=== PATIENT | female | born 1995 | race Caucasian/White ===

== ENCOUNTER 2017-11-18 04:48 | Outpatient (CLI) | payer BC, OTHER ==
[~2017-11-18] VITALS: Ht 167.6 cm; Wt 90.0 kg
[2017-11-18 05:10] VITALS: BP 133/91
[2017-11-18 07:27] VITALS: BP 137/84
[2017-11-18] MEDS ORDERED: PRENTAB9 PO (07:59)
[2017-11-18] MEDS ORDERED: LR 1,000 ML IV SCH (08:00)
[2017-11-18 08:39] VITALS: BP 133/82
[2017-11-18 09:13] VITALS: BP 127/80
[2017-11-18 10:08] VITALS: BP 119/68
== END 2017-11-18 10:50 | disposition home or self-care (01) ==
LOC: M LDO 04:48
PROVIDERS: ATTEND Obstetrics & Gynecology
DX: O99.89 Other specified diseases and conditions complicating pregnancy, childbirth and the puerperium (principal); Z3A.39 39 weeks gestation of pregnancy; O47.1 False labor at or after 37 completed weeks of gestation; R11.2 Nausea with vomiting, unspecified; R19.7 Diarrhea, unspecified; Z88.1 Allergy status to other antibiotic agents; O99.613 Diseases of the digestive system complicating pregnancy, third trimester

== ENCOUNTER 2017-11-18 20:21 | Inpatient (IN) | payer BC, OTHER ==
[2017-11-18] VITALS (16 sets, daily range): BP systolic 115–167; BP diastolic 60–118
[~2017-11-18] VITALS: Ht 167.6 cm; Wt 93.0 kg
[~2017-11-18 20:21] MED LIST: PRENTAB9 PO
[2017-11-18] MEDS ORDERED: LACTATED RINGER'S 1000 ML IV STA (20:59)
[2017-11-18 21:09] LABS: MEAN CORPUSCULAR HEMOGLOBIN 23.2 pg (27.0-33.0); MEAN CORPUSCULAR HGB CONC 30.5 g/dl (32.0-36.5); MEAN CORPUSCULAR VOLUME 76.1 fl (80.0-96.0); PLATELET COUNT, AUTOMATED 219 10^3/uL (150-450); RED CELL DISTRIBUTION WIDTH 16.9 % (11.5-14.5); WHITE BLOOD COUNT 12.6 10^3/uL (4.0-10.0)
--- NOTE | 2017-11-18 21:26 | HPE ---
DATE OF ADMISSION: 11/18/2017 22-year-old G1, P0 female, 39-3/7 weeks gestation by 6 week ultrasound, EDC of 11/22/2017 with erratic contractions every 3 to 4 minutes for the last several hours. She had a small amount of bleeding. There is good movement. COURSE: The patient initiated care on 03/05/2017 at 8 weeks gestation. Her first trimester blood pressure was 122/70, weight 155 pounds, course is essentially unremarkable. MEDICAL HISTORY: Noncontributory. SURGICAL HISTORY: None. ALLERGIES: CECLOR. SOCIAL HISTORY: The patient lives in [place]. She denies cigarettes, alcohol or drug use. The father of the baby is supportive and present. FAMILY HISTORY: Noncontributory. PHYSICAL EXAMINATION: Blood pressure 124/76, pulse 84. She appears moderately uncomfortable. Head and neck exam is normal. Lungs are clear. Heart: Regular rate and rhythm. Abdomen nontender, gravid. heart tones. Category 1. Sterile vaginal exam: 5 cm, 100% effaced, - 2 station, vertex, intact. Contractions 3 to 4 minutes. LABS: A+, rubella immune, RPR nonreactive, hepatitis B and C negative. GBS negative on 11/01/2017. ASSESSMENT: 22-year-old G1, P0 female at 39-3/7 weeks gestation presents in active labor. The patient is admitted on 11/18/2017.
[2017-11-18] MEDS ORDERED: FENTANYL 2MCG/ML ROPIVACAINE 0.2% IN 0.9% NACL 200ML IVBAG As Ordered ONE (21:40)
--- NOTE | 2017-11-18 22:41 | IPNPDOC ---
Text Note Date of Service The patient was seen on 11/18/17. NOTE Comfortable with epidural UC 2-5 minutes apart x 45-60 seconds, moderate FH 135, moderate variability, + accels SROM clear fluid 2230. SVE 7/100/0. Rest. Labor down. Anticipate NSVB VS,Fishbone, I+O VS, Fishbone, I+O Laboratory Tests 11/18/17 20:55 Red Blood Count 4.31, Mean Corpuscular Volume 76.1 L, Mean Corpuscular Hemoglobin 23.2 L, Mean Corpuscular Hemoglobin Concent 30.5 L, Red Cell Distribution Width 16.9 H Vital Signs Date Time Temp Pulse Resp B/P (MAP) Pulse Ox O2 Delivery O2 Flow Rate FiO2 11/18/17 20:37 88 141/81 (101) Kimberly Youngblood CNM Nov 18, 2017 22:41
[2017-11-18] MEDS ORDERED: NALOXONE INJ 0.4 MG/1 ML VIAL (J2310) IV PRN (23:30)
[2017-11-18] MEDS ORDERED: diphenhydrAMINE INJ 50MG/ML VIAL (J1200) IV PRN (23:30)
[2017-11-18] MEDS ORDERED: FENTANYL/ROPIVACAINE/NACL BAG 200 ML EPIDURAL SCH (23:30)
[2017-11-18] MEDS ORDERED: ePHEDrine SULFATE 25 MG/5 ML(5MG/ML) SYRINGE IV PRN (23:30)
[2017-11-18] MEDS ORDERED: REFRIGERATOR IV KEYS XX PRN (23:30)
[2017-11-18] MEDS ORDERED: ONDANSETRON 4MG/2ML VIAL (J2405) IV PRN (23:30)
[2017-11-18] MEDS ORDERED: EPIDURAL/PCA KEYS XX PRN (23:30)
[2017-11-18] MEDS ORDERED: LACTATED RINGER'S 1000 ML IV PRN (23:30)
[2017-11-18] MEDS ORDERED: EPIDURAL COMMENT XX SCH (23:30)
[2017-11-18] MEDS ORDERED: OXYTOCIN DRIP 30 UNITS in APPROPRIATE DILUENT 1 EA IV SCH (23:45)
[2017-11-19] VITALS (13 sets, daily range): BP systolic 128–150; BP diastolic 60–86
[2017-11-19 02:18] LABS: CORD GAS ABE V -5.6; CORD GAS HCO3 V 20.4 MEQ/L; CORD GAS O2 SAT V 53.8 %; CORD GAS PH V 7.305 UNITS; CORD GAS PO2 V 25.9 mmHg; CORD GAS SBC V 18.8 MEQ/L; CORD GAS TCO2 V 21.7 MEQ/L
[2017-11-19 02:21] LABS: CORD GAS ABE A -6.6; CORD GAS HCO3 A 21.1 MEQ/L; CORD GAS O2 SAT A 83.8 %; CORD GAS PCO2 A 49.7 mmHg; CORD GAS PH A 7.245 UNITS; CORD GAS PO2 A 42.4 mmHg; CORD GAS SBC A 18.8 MEQ/L; CORD GAS TCO2 A 22.6 MEQ/L
[2017-11-19] MEDS ORDERED: ACETAMINOPHEN 500 MG TAB PO PRN (02:30)
[2017-11-19] MEDS ORDERED: DIBUCAINE 1% OINTMENT 30GM TOP PRN (02:30)
[2017-11-19] MEDS ORDERED: METHYLERGONOVINE MALEATE 0.2 MG TAB PO PRN (02:30)
[2017-11-19] MEDS ORDERED: DOCUSATE SODIUM 100 MG CAP PO PRN (02:30)
[2017-11-19] MEDS ORDERED: MOM 30ML SUSPENSION UDC PO PRN (02:30)
[2017-11-19] MEDS ORDERED: MEASLES,MUMPS,RUBELLA VACCINE INJ (MMR-II) (90707) SC SCH (02:30)
[2017-11-19] MEDS ORDERED: RHOGAM 300 MCG (1500 IU) INJ (J2790) IM SCH (02:30)
[2017-11-19] MEDS ORDERED: ANUSOL HC CREAM 30GM TOP PRN (02:30)
--- NOTE | 2017-11-19 02:36 | DNPDOC ---
[facility] Delivery Note Delivery Note DATE OF DELIVERY: 11/19/2017 PREDELIVERY DIAGNOSIS: 39-4/7 weeks' gestation and labor. POST DELIVERY DIAGNOSIS: Delivered. PROCEDURE: Spontaneous vaginal delivery. LABORATORY ANIMAL CARE VETERINARIAN: Kimberly Youngblood ANESTHESIA: Epidural. ESTIMATED BLOOD LOSS: 100 mL. FINDINGS: 6 pound 13 ounce female infant, Score 9/9, no nuchal cord. DELIVERY SUMMARY: Patient is a 22-year-old 1 now para 1 -0 -0-1 who was admitted to labor and delivery for active labor. She utilized an epidural for labor coping. Spontaneous rupture of membranes scant amount of clear fluid at 2233. Fully dilated 0022. Artificial rupture of membranes of the fore bag at 0038, for thin meconium-stained fluid. Viable female child delivered without difficulty SONNY at 0157. Spontaneous respirations. Transitioned on maternal abdomen. Cord doubly clamped and cut by the father of the baby under my direction once pulsations ceased. Apgars were 9 and 9. Cord gases were obtained. Arterial 7.245 with base excess of -6.6 and venous 7.305 with base excess of -5.6. Placenta delivered Swanson and intact with a three-vessel cord at 0204. Fundus firmed with massage and IV Pitocin bolus. Estimated blood loss 100 mL. Cervix, vagina and perineum were inspected. First-degree vaginal laceration and bilateral labial lacerations were repaired with 3-0 Vicryl Rapide. weight 3100 g, 6 lbs. 13 oz. Parents are naming their daughter Amy. Sponge, sharp and instrument count were correct at the close of the procedure Kimberly Youngblood CNM Nov 19, 2017 02:36
[2017-11-19] MEDS: PRENATAL VITAMINS CHEWABLE TABLET PO SCH (09:09)
[2017-11-19] MEDS: IBUPROFEN 800 MG TAB PO PRN (20:43)
[2017-11-20 06:00] VITALS: BP 126/74
[2017-11-20] MEDS ORDERED: IBUP-1114 PO (07:19)
[2017-11-20] MEDS ORDERED: ACET50TA PO (07:19)
[2017-11-20] MEDS: IBUPROFEN 800 MG TAB PO PRN (08:08)
[2017-11-20] MEDS: PRENATAL VITAMINS CHEWABLE TABLET PO SCH (08:08)
== END 2017-11-20 11:15 | disposition home or self-care (01) | DRG 560 ==
LOC: M LDO 20:21 → M LDI 20:44 → M OBS 11-19 05:18
PROVIDERS: ADMIT Specialist; ATTEND Specialist
PROC: 10E0XZZ Delivery of Products of Conception, External Approach (ICD-10-PCS; principal; 2017-11-19)
PROC: 0HQ9XZZ Repair Perineum Skin, External Approach (ICD-10-PCS; 2017-11-19)
PROC: 10907ZC Drainage of Amniotic Fluid, Therapeutic from Products of Conception, Via Natural or Artificial Opening (ICD-10-PCS; 2017-11-19)
DX: O70.0 First degree perineal laceration during delivery (principal); Z37.0 Single live birth; Z3A.39 39 weeks gestation of pregnancy

== ENCOUNTER → 2018-05-07 | Outpatient (REF) | payer OTHER | LOC: M LAB REF 09:19 | DX: Z12.4 Encounter for screening for malignant neoplasm of cervix (principal); B37.3 Candidiasis of vulva and vagina ==

== ENCOUNTER → 2019-06-10 | Outpatient (CLI) | payer OTHER ==
[~2019-06-10] MED LIST changes: +IBUP-1114 PO; +MAPA500T2 PO
== END ==
LOC: M SMT 14:28
PROVIDERS: ATTEND Advanced Practice Midwife
DX: N91.1 Secondary amenorrhea (principal)

== ENCOUNTER → 2020-01-07 | Outpatient (REF) | payer OTHER | LOC: M SFHCWAGY 16:56 | PROVIDERS: ATTEND Obstetrics & Gynecology | DX: Z34.83 Encounter for supervision of other normal pregnancy, third trimester (principal) ==

== ENCOUNTER 2020-01-26 19:22 | Inpatient (IN) | payer BC, OTHER ==
[~2020-01-26] VITALS: Ht 167.6 cm; Wt 88.0 kg
[2020-01-26] MEDS ORDERED: DOCUSATE SODIUM 100 MG CAP PO PRN (20:45)
[2020-01-26] MEDS ORDERED: OXYTOCIN INJ 10 UNITS/ML VIAL (J2590) IM ONE (20:45)
[2020-01-26] MEDS ORDERED: ACETAMINOPHEN TAB 650MG DOSE (2X325MG) PO PRN (20:45)
[2020-01-26] MEDS ORDERED: RHOGAM 300 MCG (1500 IU) INJ (J2790) IM SCH (20:45)
[2020-01-26] MEDS ORDERED: ONDANSETRON 4MG/2ML VIAL (J2405) IV PRN (20:45)
[2020-01-26] MEDS ORDERED: IBUPROFEN 800 MG TAB PO PRN (20:45)
[2020-01-26] MEDS ORDERED: ACETAMINOPHEN 500 MG TAB PO PRN (20:45)
[2020-01-26] MEDS ORDERED: DIBUCAINE 1% OINTMENT 30GM TOP PRN (20:45)
[2020-01-26] MEDS ORDERED: PROMETHAZINE 25 MG TAB PO PRN (20:45)
[2020-01-26] MEDS ORDERED: MEASLES,MUMPS,RUBELLA VACCINE INJ (MMR-II) (90707) SC SCH (20:45)
[2020-01-26] MEDS: IBUPROFEN 600 MG TAB PO PRN (20:59)
[2020-01-26 21:45] VITALS: BP 135/97
[2020-01-26 22:23] LABS: HEMATOCRIT 35.6 % (36.0-47.0); HEMOGLOBIN 11.1 g/dl (12.0-15.5); MEAN CORPUSCULAR HEMOGLOBIN 25.1 pg (27.0-33.0); MEAN CORPUSCULAR HGB CONC 31.2 g/dl (32.0-36.5); MEAN CORPUSCULAR VOLUME 80.4 fl (80.0-96.0); PLATELET COUNT, AUTOMATED 174 10^3/uL (150-450); RED BLOOD COUNT 4.43 10^6/uL (4.00-5.40); WHITE BLOOD COUNT 16.8 10^3/uL (4.0-10.0)
[2020-01-27 06:00] VITALS: BP 112/60
[2020-01-27] MEDS: IBUPROFEN 600 MG TAB PO PRN (08:56)
[2020-01-27] MEDS ORDERED: PRENATAL VITAMINS CHEWABLE TABLET PO SCH (09:00)
[2020-01-27 18:02] VITALS: BP 128/77
[2020-01-28 05:38] VITALS: BP 134/86
== END 2020-01-28 10:15 | disposition home or self-care (01) | DRG 560 ==
LOC: M LDO 19:22 → M LDI 19:47 → M OBS 21:44
PROVIDERS: ADMIT Obstetrics & Gynecology; ATTEND Obstetrics & Gynecology
PROC: 10E0XZZ Delivery of Products of Conception, External Approach (ICD-10-PCS; principal; 2020-01-26)
DX: O80 Encounter for full-term uncomplicated delivery (principal); Z3A.38 38 weeks gestation of pregnancy; Z37.0 Single live birth

== ENCOUNTER → 2021-10-31 | Outpatient (REF) | payer OTHER ==
[2021-10-31 21:12] LABS: GC DNA AMPLIFICATION NEGATIVE (NEGATIVE)
== END ==
LOC: M SFHCWAGY 17:26
PROVIDERS: ATTEND Advanced Practice Midwife
DX: Z36.9 Encounter for antenatal screening, unspecified (principal); Z3A.00 Weeks of gestation of pregnancy not specified

== ENCOUNTER → 2022-04-26 | Outpatient (REF) | payer OTHER | LOC: M PLALAB 15:04 | PROVIDERS: ATTEND Advanced Practice Midwife | DX: Z53.9 Procedure and treatment not carried out, unspecified reason (principal) ==

== ENCOUNTER → 2022-05-08 | Outpatient (REF) | payer OTHER | LOC: M SFHCWAGY 12:52 | PROVIDERS: ATTEND Specialist | DX: Z34.83 Encounter for supervision of other normal pregnancy, third trimester (principal) ==

== ENCOUNTER → 2023-07-30 | Outpatient (REF) | payer OTHER ==
[~2023-07-30] MED LIST changes: +TUMS500C PO
== END ==
LOC: M SFHCWAGY 13:22
PROVIDERS: ATTEND Obstetrics & Gynecology
DX: Z12.4 Encounter for screening for malignant neoplasm of cervix (principal)
CPT/HCPCS: 87624; G0123

== ENCOUNTER → 2024-09-03 | Outpatient (REF) | payer OTHER ==
[2024-09-08 11:12] LABS: HPV APTIMA Not Detected (Not Detected)
== END ==
LOC: M SFHCWAGY 18:11
PROVIDERS: ATTEND Nurse Practitioner Family
DX: Z12.4 Encounter for screening for malignant neoplasm of cervix (principal); R87.610 Atypical squamous cells of undetermined significance on cytologic smear of cervix (ASC-US)
CPT/HCPCS: 87624; G0123